=== PATIENT | male | born 1975 | race Caucasian/White ===

== ENCOUNTER 2021-09-18 05:43 | Inpatient (IN) ==
[2021-09-18] MEDS ORDERED: VANCOMYCIN INJ 1,000 MG in SODIUM CHLORIDE 0.9% 250 ML IV ONE (06:00)
[2021-09-18] MEDS ORDERED: propofoL 200 MG/20 ML VIAL IV ONE ×3 (06:15→07:51)
[2021-09-18] MEDS ORDERED: LIDOCAINE 2% 5 ML VIAL ONE (06:15)
[2021-09-18] MEDS ORDERED: fentaNYL 100 MCG/2 ML VIAL ONE ×2 (06:15→07:36)
[2021-09-18] MEDS: LACTATED RINGERS 1,000 ML IV SCH (06:15)
[2021-09-18] MEDS ORDERED: MIDAZOLAM 2 MG/2 ML VIAL ONE (06:15)
[2021-09-18] MEDS ORDERED: FAMOTIDINE 20 MG TABLET PO STA (06:19)
[2021-09-18] MEDS ORDERED: GABAPENTIN 400 MG CAPSULE PO STA (06:20)
[2021-09-18] MEDS ORDERED: ACETAMINOPHEN 500 MG TABLET PO STA (06:20)
[2021-09-18] MEDS ORDERED: ROCURONIUM 50 MG/5 ML VIAL IV ONE (06:30)
[2021-09-18] MEDS ORDERED: DEXAMETHASONE 4 MG/1 ML VIAL ONE (06:34)
[2021-09-18] MEDS ORDERED: BUPIVACAINE MPF 0.25% 30 ML VIAL ONE (06:34)
[2021-09-18] MEDS ORDERED: LIDOCAINE 1% 5 ML VIAL ONE (06:34)
[2021-09-18 06:47] LABS: PT Patient Result 11.1 SECS (10.5-12.0); Partial Thromboplastin Time 25.9 SECS (23.8-32.1)
[2021-09-18] MEDS ORDERED: diphenhydrAMINE CAP 25 MG CAPSULE PO PRN (07:01)
[2021-09-18] MEDS ORDERED: ONDANSETRON 4 MG/2 ML VIAL IV PRN ×2 (07:01→08:52)
[2021-09-18] MEDS ORDERED: TEMAZEPAM 7.5 MG CAPSULE PO PRN (07:01)
[2021-09-18] MEDS ORDERED: MAGNESIUM HYDROXIDE SUSP 30 ML UDCUP PO PRN (07:01)
[2021-09-18] MEDS ORDERED: BISACODYL 10 MG SUPP RECTAL PRN (07:01)
[2021-09-18] MEDS ORDERED: LACTULOSE 20 GM/30 ML UDCUP PO PRN (07:01)
[2021-09-18] MEDS ORDERED: MORPHINE 2 MG/1 ML SYRINGE IV PRN ×2 (07:01→07:08)
[2021-09-18] MEDS ORDERED: METHOCARBAMOL 750 MG TABLET PO PRN (07:04)
[2021-09-18] MEDS ORDERED: ePHEDrine 50 MG/ML VIAL ONE (07:27)
[2021-09-18] MEDS ORDERED: TRANEXAMIC ACID 1,000 MG/10 ML VIAL ONE (07:30)
[2021-09-18] MEDS ORDERED: SODIUM CHLORIDE 0.9% 100 ML IV ONE (07:40)
[2021-09-18] MEDS ORDERED: ONDANSETRON 4 MG/2 ML VIAL ONE (07:57)
[2021-09-18] MEDS ORDERED: NEOSTIGMINE 10 MG/10 ML VIAL ONE (07:58)
[2021-09-18] MEDS ORDERED: GLYCOPYRROLATE 0.4 MG/2 ML VIAL ONE (07:58)
[2021-09-18] MEDS ORDERED: LACTATED RINGERS 1,000 ML IV ONE (08:01)
[2021-09-18] MEDS ORDERED: SEVOFLURANE 1 UNIT/15 MINUTE INH ONE (08:13)
[2021-09-18 08:44] LABS: Bilirubin,Urine Negative (Negative); Blood, Urine Negative (Negative); Glucose,Urine (UA) Negative (Negative); Ketones,Urine Negative (Negative); Mucus,Urine Occasional /LPF (Occasional); Nitrite,Urine Negative (Negative); Protein,Urine Negative; RBC,Urine 2 /HPF (0-4); Squamous Epithelial Cell,Urine Occasional /HPF (0-10); Urine Appearance CLEAR (Clear); Urine Color Yellow (Yellow); Urine Specific Gravity 1.015 (1.001-1.035); Urine Urobilinogen < 2.0 EU/DL (0.2-1.0)
[2021-09-18] MEDS: HYDROmorphone 2 MG/1 ML VIAL IV PRN ×6 (08:58→17:36)
[2021-09-18] MEDS ORDERED: PROMETHAZINE INJ 25 MG in SODIUM CHLORIDE 0.9% 50 ML IV PRN (09:28)
[2021-09-18] MEDS ORDERED: MEPERIDINE 25 MG/1 ML VIAL ONE (09:28)
[2021-09-18] MEDS ORDERED: MEPERIDINE 25 MG/1 ML VIAL IV PRN (09:34)
[2021-09-18] MEDS ORDERED: KETOROLAC 30 MG/1 ML VIAL IV ONE (12:41)
[2021-09-18] MEDS ORDERED: HYDROmorphone 2 MG/1 ML VIAL IM PRN (12:42)
[2021-09-18] MEDS ORDERED: KETOROLAC 15 MG/1 ML VIAL IM SCH (13:00)
[2021-09-18] MEDS: ceFAZolin 2,000 MG/50 ML DUPLEX IV SCH ×2 (14:17→21:16)
[2021-09-18] MEDS ORDERED: NALOXONE 0.4 MG/ML VIAL IV PRN (17:37)
[2021-09-18] MEDS: HYDROmorphone PCA 30 MG/30 ML SYRINGE IV SCH (18:51)
[2021-09-18] MEDS: DOCUSATE SODIUM 100 MG CAPSULE PO SCH (21:16)
[2021-09-18] MEDS: PANTOPRAZOLE 40 MG TABLET PO SCH (21:16)
[2021-09-18] MEDS: FONDAPARINUX 2.5 MG/0.5 ML SYRINGE SUBCUT SCH (21:16)
[2021-09-18] MEDS: PREGABALIN 50 MG CAPSULE PO SCH (21:16)
[2021-09-18] MEDS: SERTRALINE 100 MG TABLET PO SCH (21:16)
[2021-09-19 06:17] LABS: Basophils % 0.4 % (0.0-0.8); Eosinophils % 0.1 % (0.00-10.9); Hematocrit 33.9 VOL% (42.0-52.0); Hemoglobin 11.4 GM/DL (14.0-18.0); Immature Granulocytes % 0.5 %; Immature Granulocytes Absolute 0.05 #; Lymphocytes # 1.9 10*3/uL (1.4-4.0); Lymphocytes % 18.9 % (21.2-54.2); Mean Corpuscular HGB Conc 33.6 GM/DL (32-36); Mean Corpuscular Volume 87.8 FL (87-102); Mean Platelet Volume 11.1 FL (9.6-12.0); Monocytes % 9.6 % (1.7-12.7); Neutrophils % 70.5 % (38.7-73.9); Platelet Count 290 T/CUMM (130-400); Red Blood Count 3.86 MC/CUMM (3.8-5.5); Red Cell Distribution Width 13.4 % (9.3-17.3)
[2021-09-19 06:48] LABS: Calcium 8.6 MG/DL (8.5-10.1); Osmolality,Calculated 269.7 MOS/KG (273-304); Potassium 3.6 MMOL/L (3.5-5.1)
[2021-09-19] MEDS: LACTATED RINGERS 1,000 ML IV SCH (06:53)
[2021-09-19] MEDS: DOCUSATE SODIUM 100 MG CAPSULE PO SCH ×2 (08:36→20:48)
[2021-09-19] MEDS: ATORVASTATIN 40 MG TABLET PO SCH (08:36)
[2021-09-19] MEDS: SERTRALINE 100 MG TABLET PO SCH (20:48)
[2021-09-19] MEDS: PANTOPRAZOLE 40 MG TABLET PO SCH (20:48)
[2021-09-19] MEDS: PREGABALIN 50 MG CAPSULE PO SCH (20:48)
[2021-09-19] MEDS: FONDAPARINUX 2.5 MG/0.5 ML SYRINGE SUBCUT SCH (20:49)
[2021-09-19] MEDS: HYDROmorphone PCA 30 MG/30 ML SYRINGE IV SCH (21:35)
[2021-09-19] MEDS: PROMETHAZINE 25 MG/1 ML VIAL IM PRN (21:48)
[2021-09-20] MEDS: ACETAMINOPHEN 325 MG TABLET PO PRN ×2 (00:21→09:23)
[2021-09-20] MEDS ORDERED: IBUPROFEN 600 MG TABLET PO PRN (03:23)
[2021-09-20] MEDS: LACTATED RINGERS 1,000 ML IV SCH (04:24)
[2021-09-20] MEDS: ATORVASTATIN 40 MG TABLET PO SCH (09:23)
[2021-09-20] MEDS: DOCUSATE SODIUM 100 MG CAPSULE PO SCH ×2 (09:23→21:40)
[2021-09-20] MEDS: PANTOPRAZOLE 40 MG TABLET PO SCH (09:23)
[2021-09-20] MEDS: HYDROmorphone 2 MG/1 ML VIAL IV PRN ×2 (16:34→21:44)
[2021-09-20] MEDS: PROMETHAZINE 25 MG/1 ML VIAL IM PRN (18:38)
[2021-09-20] MEDS: PREGABALIN 50 MG CAPSULE PO SCH (21:40)
[2021-09-20] MEDS: SERTRALINE 100 MG TABLET PO SCH (21:40)
[2021-09-20] MEDS: FONDAPARINUX 2.5 MG/0.5 ML SYRINGE SUBCUT SCH (21:44)
[2021-09-21] MEDS: HYDROmorphone 2 MG/1 ML VIAL IV PRN ×2 (01:51→05:03)
[2021-09-21 07:34] VITALS: BP 147/56
[2021-09-21] MEDS: DOCUSATE SODIUM 100 MG CAPSULE PO SCH (08:46)
[2021-09-21] MEDS: ATORVASTATIN 40 MG TABLET PO SCH (08:46)
[2021-09-21] MEDS: PANTOPRAZOLE 40 MG TABLET PO SCH (08:47)
[2021-09-21] MEDS: PROMETHAZINE 25 MG/1 ML VIAL IM PRN (09:39)
[2021-09-21] MEDS: FONDAPARINUX 2.5 MG/0.5 ML SYRINGE SUBCUT SCH (09:48)
== END 2021-09-21 10:56 | disposition home health service (06) | DRG 470 ==
LOC: N.OR 05:43 → N.SDSINP 05:43 → EDSTATUS 07:30 → N.3E 08:20
PROVIDERS: ADMIT Orthopaedic Surgery; ATTEND Orthopaedic Surgery